=== PATIENT | female | born 1945 ===

== ENCOUNTER 2019-06-08 06:00 | Day surgery (SDC) | payer OTHER ==
[~2019-06-08 06:00] MED LIST: B-12500 MCG PO; CALTRATE 600 +1 EACH PO; DETROL LA4 MG PO; FOLIC ACID0.8 M1 PO; LIPITOR20 MG PO
== END 2019-06-08 12:55 | disposition home or self-care (01) ==
LOC: CIR.AMB 06:00
DX: M65.841 Other synovitis and tenosynovitis, right hand (principal)